=== PATIENT | female | born 1965 | race Caucasian/White ===

== ENCOUNTER 2021-04-28 14:39 | Emergency (ER) | payer MEDICARE ==
[~2021-04-28] VITALS: Ht 162.6 cm; Wt 67.3 kg
[2021-04-28 15:25] VITALS: BP 161/89; TEMP 98.3
[2021-04-28 17:57] VITALS: PULSE 65
[2021-04-28] MEDS ORDERED: GLUCOPHAGE500 MG/TAB PO (17:58)
[2021-04-28] MEDS ORDERED: PAXIL40 MG PO (17:59)
[2021-04-28] MEDS ORDERED: TENORMIN100 MG PO (18:00)
[2021-04-28] MEDS ORDERED: LIPITOR 10MG10 MG PO (18:00)
[2021-04-28] MEDS ORDERED: COZAAR100 MG PO (18:01)
[2021-04-28] MEDS ORDERED: PROTONIX 40MG T40 MG PO (18:02)
[2021-04-28] MEDS ORDERED: CATAPRES 0.1MG0.1 MG PO (18:04)
[2021-04-28] MEDS ORDERED: KLONOPIN 0.5MG0.5 MG PO (18:05)
[2021-05-01] MEDS ORDERED: DESYREL 100MG100 MG PO (15:41)
[2021-05-01] MEDS ORDERED: HYTRIN 1MG C1 MG/CAP PO (15:42)
[2021-05-01] MEDS ORDERED: PEPCID40 MG PO (15:47)
[2021-05-01] MEDS ORDERED: ASPIRIN 81M81 MG/TA2 PO (15:48)
== END 2021-04-28 18:15 | disposition home or self-care (01) ==
LOC: COL.ER 14:39
DX: Z20.822 Contact with and (suspected) exposure to COVID-19 (principal); E11.22 Type 2 diabetes mellitus with diabetic chronic kidney disease; I13.0 Hypertensive heart and chronic kidney disease with heart failure and stage 1 through stage 4 chronic kidney disease, or unspecified chronic kidney disease; N18.9 Chronic kidney disease, unspecified; I50.9 Heart failure, unspecified; E78.5 Hyperlipidemia, unspecified; K21.9 Gastro-esophageal reflux disease without esophagitis; Z79.84 Long term (current) use of oral hypoglycemic drugs; Z79.899 Other long term (current) drug therapy

== ENCOUNTER → 2021-05-01 | Emergency (ER) | payer MEDICARE ==
[~2021-05-01] VITALS: Ht 162.6 cm; Wt 67.3 kg
[~2021-05-01] MED LIST: ASPIRIN 81M81 MG/TA2 PO; CATAPRES 0.1MG0.1 MG PO; COZAAR100 MG PO; DESYREL 100MG100 MG PO; GLUCOPHAGE500 MG/TAB PO; HYTRIN 1MG C1 MG/CAP PO; KLONOPIN 0.5MG0.5 MG PO; LIPITOR 10MG10 MG PO; PAXIL40 MG PO; PEPCID40 MG PO; PROTONIX 40MG T40 MG PO; TENORMIN100 MG PO
[2021-05-01 16:00] VITALS: BP 161/89; PULSE 89; TEMP 99.7
[2021-05-01 16:01] LABS: BASO % 0.2 % (0.0-2.0); GRAN # 2.9 (1.4-6.5); HEMATOCRIT 31.7 % (37.0-47.0); HEMOGLOBIN 10.4 g/dl (12.5-16.0); LYMPH # 0.8 (1.2-3.4); LYMPH % 19.4 % (20.0-51.0); MEAN CELL VOLUME 87 fl (80.0-100.0); MEAN CORPUSCULAR HEMOGLOBIN 28 pg (27.0-31.0); MEAN CORPUSCULAR HGB CONC 33 g/dl (33.0-37.0); MEAN PLATELET VOLUME 10.7 fl (7.4-10.4); MONO # 0.4 (0.1-0.6); MONO % 10.2 % (1.7-9.3); PLATELET COUNT 176 K/mm3 (130-400); RED BLOOD COUNT 3.66 M/mm3 (4.10-5.30); REDCELL DISTRIBUTION WIDTH-CV 13.2 % (11.5-14.5)
[2021-05-01 16:12] LABS: BILIRUBIN,TOTAL 0.4 mg/dL (0.0-1.0); CREATININE, serum 0.47 (0.52-1.25); POTASSIUM 3.8 mmol/L (3.4-5.0)
== END ==
LOC: COL.ER 11:38
PROVIDERS: Family Medicine
DX: U07.1 COVID-19 (principal); I13.0 Hypertensive heart and chronic kidney disease with heart failure and stage 1 through stage 4 chronic kidney disease, or unspecified chronic kidney disease; N18.9 Chronic kidney disease, unspecified; I50.9 Heart failure, unspecified; E11.22 Type 2 diabetes mellitus with diabetic chronic kidney disease; E78.5 Hyperlipidemia, unspecified; F41.9 Anxiety disorder, unspecified; M79.7 Fibromyalgia; K21.9 Gastro-esophageal reflux disease without esophagitis; Z79.84 Long term (current) use of oral hypoglycemic drugs; Z79.899 Other long term (current) drug therapy; Z79.82 Long term (current) use of aspirin
CPT/HCPCS: J7030; Q0244